=== PATIENT | female | born 1960 | race Caucasian/White ===

== ENCOUNTER 2022-02-12 14:35 | Inpatient (IN) | payer OTHER ==
[2022-02-12 15:28] LABS: ALT (SGPT) 22 U/L (8-55); AST (SGOT) 20 U/L (5-34); Albumin 3.4 g/dL (3.5-5.0); Alkaline Phosphatase 61 U/L (40-110); Anion Gap 20 mmol/L (10-20); BUN (Urea Nitrogen) 26 mg/dL (9.8-20.1); Bilirubin, Total 2.7 mg/dL (0.2-1.2); CK (CPK) 150 U/L (29-168); Calc. Creatinine Clearance 0 mL/min (70-130); Calcium 8.1 mg/dL (7.8-10.44); Carbon Dioxide 18 mmol/L (22-29); Chloride 96 mmol/L (98-107); Globulin 2.2 g/dL (2.4-3.5); Glucose 374 mg/dL (70-105); Lipase 13 U/L (8-78); Potassium 4.5 mmol/L (3.5-5.1); Protein, Total 5.6 g/dL (6.0-8.3); Sodium 129 mmol/L (136-145)
[2022-02-12 15:33] LABS: Actual Bicarbonate (HCO3v) 20 mEq/L (22-28); Base Excess -4.3 mEq/L (-2.0 to +3.0); Calcium, Ionized (venous) 1.03 mmol/L (1.16-1.32); Chloride (VBG) 97 mmol/L (98-106); Hemoglobin (Hb) 12.9 g/dL (11.7-16.0); Potassium (VBG) 4.77 mmol/L (3.70-5.30); Puncture Site Other Site; RapidComm Collect By CBL; Sodium 125.6 mmol/L (133-146); pH (venous) 7.39 (7.32-7.43)
[2022-02-12] MEDS ORDERED: Acetaminophen 500 MG TAB ONE (15:33)
[2022-02-12] MEDS ORDERED: Ondansetron PF 4 MG/2 ML Vial ONE ×2 (15:33→20:06)
[2022-02-12] MEDS ORDERED: Vancomycin HCl 500 MG VIAL ONE (15:56)
[2022-02-12 15:57] LABS: Hemoglobin 12.8 g/dL (12.0-15.5); Mean Corpuscular HGB CONC 33.9 g/dL (32.0-36.0); Mean Corpuscular Hemoglobin 27.8 pg (27.0-33.0); Mean Corpuscular Volume 82.2 fl (81.6-98.3); Mean Platelet Volume 9.9 fl (7.4-10.4); Platelet Count 192 10x3/uL (150-450); RBC Distribution Width 15.1 % (11.5-14.5); White Blood Cell (WBC) Count 14.6 10x3/uL (3.5-10.5)
[2022-02-12 16:20] LABS: Bilirubin Neg (Negative); Blood, Urine 250 (Negative); Clarity Cloudy (Clear); Glucose, Urine (Dipstick) 250 mg/dL (Negative); Ketone, Urine 5 mg/dL (Negative); Leukocyte 500 (Negative); Nitrite Negative (Negative); Protein, Urine (Dipstick) 100 mg/dl (Neg-Trace); Urobilinogen Normal mg/dL (Less than 2)
[2022-02-12 16:23] LABS: Band 27 % (5-11); Lymphocytes 4 % (21-51); Monocytes 3 % (0-10); Neutrophil 66 % (42-75)
[2022-02-12 16:24] LABS: Anisocytosis SLIGHT = 6-15 cells (100X) (0-5/hpf); Poikilocytosis SLIGHT = 6-15 cells (100X) (0-5/hpf)
[2022-02-12 16:25] LABS: Burr Cells SLIGHT = 2-5 cells (100X) (0-1/hpf); Crenated RBC SLIGHT = 1-5 cells (100X) (None Seen); Microcytosis SLIGHT = 6-15 cells (100X) (0-5/hpf)
[2022-02-12 16:26] LABS: Dohle Bodies MODERATE; Platelet Morphology Comment Appears Adequate; Toxic Granulation SLIGHT; Vacuoles SLIGHT
[2022-02-12 16:27] LABS: MDiff Complete? YES
[2022-02-12 16:56] LABS: Bacteria/HPF 4+ HPF (None Seen); RBC/HPF Greater than 50 HPF (0-3); Renal Epithelial 0-3 HPF (None Seen); Squamous Epithelial 0-3 HPF (0-3); WBC/HPF Greater Than 50 HPF (0-3)
[2022-02-12 17:53] LABS: Lactic Acid 1.6 mmol/L (0.5-2.2)
[2022-02-12] MEDS ORDERED: Cefepime 2 GM VIAL ONE (18:58)
[2022-02-12] MEDS ORDERED: Sodium Chloride 0.9% 1,000 ML IV SCH (19:30)
[2022-02-12] MEDS ORDERED: Dextrose 5 %-0.45 % NaCl 1,000 ML IV PRN (19:33)
[2022-02-12] MEDS ORDERED: D5 1/2 NS w/20 mEq KCL 1,000 ML IV PRN (19:33)
[2022-02-12] MEDS ORDERED: Sodium Chloride 0.9% 1,000 ML IV PRN (19:33)
[2022-02-12] MEDS ORDERED: NS 0.9% w/ 20 MEQ KCL 1,000 ML IV PRN (19:33)
[2022-02-12] MEDS ORDERED: Electrolyte Replacement Protocol 1 EACH IVPB SCH (19:33)
[2022-02-12] MEDS ORDERED: Ondansetron ODT 4 MG TAB PO PRN (19:36)
[2022-02-12] MEDS ORDERED: Iopamidol 0 ML ONE (19:44)
[2022-02-12] MEDS ORDERED: Fentanyl 100 MCG/2 ML VIAL ONE (19:48)
[2022-02-12] MEDS ORDERED: PROPOFOL 20 ML ONE (19:48)
[2022-02-12] MEDS ORDERED: Lidocaine 2% PF 5 ML VIAL ONE (20:06)
[2022-02-12] MEDS ORDERED: Dexamethasone 4 mg/ml Vial ONE (20:06)
[2022-02-12 20:10] LABS: Anion Gap 13 mmol/L (10-20); BUN (Urea Nitrogen) 29 mg/dL (9.8-20.1); Calc. Creatinine Clearance 0 mL/min (70-130); Calcium 8.3 mg/dL (7.8-10.44); Carbon Dioxide 20 mmol/L (22-29); Chloride 101 mmol/L (98-107); Glucose 245 mg/dL (70-105); Magnesium 1.6 mg/dL (1.6-2.6); Phosphorus 2.5 mg/dL (2.3-4.7); Potassium 3.7 mmol/L (3.5-5.1); Sodium 130 mmol/L (136-145)
[2022-02-12] MEDS ORDERED: Succinylcholine 200 MG/10 ml SYRINGE FS ONE (20:50)
[2022-02-12 22:26] VITALS: BMI 31.7
[2022-02-12] MEDS ORDERED: INSULIN REGULAR IN 0.9 % NACL 100 UNIT in Sodium Chloride 0.9% 100 ML IVPB SCH (23:00)
[2022-02-12] MEDS: Ondansetron PF 4 MG/2 ML Vial IVP PRN (23:06)
[2022-02-12] MEDS ORDERED: Dextrose 5% in Water 1,000 ML IV PRN (23:15)
[2022-02-12] MEDS ORDERED: Dextrose 50% Abboject 50 ML SYRINGE IVP PRN (23:15)
[2022-02-12] MEDS ORDERED: HumaLOG 300 UNITS/3 ML VIAL SC PRN (23:15)
[2022-02-12 23:53] LABS: Anion Gap 16 mmol/L (10-20); BUN (Urea Nitrogen) 33 mg/dL (9.8-20.1); Calc. Creatinine Clearance 30 mL/min (70-130); Calcium 8.2 mg/dL (7.8-10.44); Carbon Dioxide 16 mmol/L (22-29); Chloride 103 mmol/L (98-107); Glucose 303 mg/dL (70-105); Potassium 4.3 mmol/L (3.5-5.1); Sodium 131 mmol/L (136-145)
[2022-02-13] MEDS ORDERED: Vancomycin 1 GM in Premix Bag 1 BAG IVPB PRN (00:30)
[2022-02-13] MEDS ORDERED: NS 0.9% w/ 20 MEQ KCL 1,000 ML IV PRN (01:05)
[2022-02-13] MEDS ORDERED: Electrolyte Replacement Protocol 1 EACH IVPB SCH (01:05)
[2022-02-13] MEDS ORDERED: D5 1/2 NS w/20 mEq KCL 1,000 ML IV PRN (01:05)
[2022-02-13] MEDS ORDERED: Sodium Chloride 0.9% 1,000 ML IV PRN ×2 (01:05)
[2022-02-13] MEDS ORDERED: Dextrose 5 %-0.45 % NaCl 1,000 ML IV PRN (01:05)
[2022-02-13] MEDS: INSULIN REGULAR IN 0.9 % NACL 100 UNIT in Premix Bag 1 BAG IVPB SCH ×3 (01:33→15:28)
[2022-02-13] MEDS ORDERED: NS 0.9% w/ 20 MEQ KCL 1,000 ML ONE (01:35)
[2022-02-13 03:17] LABS: Mean Corpuscular HGB CONC 34.1 g/dL (32.0-36.0); Mean Corpuscular Hemoglobin 28.4 pg (27.0-33.0); Mean Corpuscular Volume 83.2 fl (81.6-98.3); Mean Platelet Volume 9.8 fl (7.4-10.4); Platelet Count 147 10x3/uL (150-450); RBC Distribution Width 15.2 % (11.5-14.5); Red Blood Cell (RBC) Count 3.88 10x6/uL (3.90-5.03); White Blood Cell (WBC) Count 12.6 10x3/uL (3.5-10.5)
[2022-02-13 03:50] LABS: Anion Gap 14 mmol/L (10-20); BUN (Urea Nitrogen) 37 mg/dL (9.8-20.1); Calc. Creatinine Clearance 29 mL/min (70-130); Calcium 8.2 mg/dL (7.8-10.44); Carbon Dioxide 15 mmol/L (22-29); Chloride 105 mmol/L (98-107); Glucose 303 mg/dL (70-105); Potassium 4.2 mmol/L (3.5-5.1); Sodium 130 mmol/L (136-145)
[2022-02-13] MEDS: Acetaminophen 325 MG TAB PO PRN ×2 (04:24→17:44)
[2022-02-13 05:38] LABS: SARS-CoV-2 NAA Rapid Test Not Detected (NotDetected)
[2022-02-13] MEDS ORDERED: Sodium Chloride 0.9% 1,000 ML IV SCH (06:30)
[2022-02-13 06:36] LABS: Magnesium 1.7 mg/dL (1.6-2.6); Phosphorus 2.4 mg/dL (2.3-4.7)
[2022-02-13] MEDS: Enoxaparin Sodium 30 MG/0.3 ML SYRINGE SC SCH (08:25)
[2022-02-13] MEDS: D5 1/2 NS w/20 mEq KCL 1,000 ML IV SCH ×2 (08:33→16:35)
[2022-02-13] MEDS ORDERED: Magnesium 2 GM/50 ML(in water) 2 GM in Premix Bag 1 BAG IVPB SCH (09:00)
[2022-02-13 09:26] LABS: Anion Gap 13 mmol/L (10-20); BUN (Urea Nitrogen) 38 mg/dL (9.8-20.1); Calc. Creatinine Clearance 29 mL/min (70-130); Calcium 7.9 mg/dL (7.8-10.44); Carbon Dioxide 17 mmol/L (22-29); Chloride 108 mmol/L (98-107); Glucose 176 mg/dL (70-105); Potassium 4.1 mmol/L (3.5-5.1); Sodium 134 mmol/L (136-145); Vancomycin, Random 13.1 ug/mL (See Comment)
[2022-02-13] MEDS: Ondansetron PF 4 MG/2 ML Vial IVP PRN (09:32)
[2022-02-13] MEDS ORDERED: VANCOMYCIN 1.25 GM/250 ML BAG 1.25 GM in Premix Bag 1 BAG IVPB SCH (11:00)
[2022-02-13] MEDS ORDERED: VANCOMYCIN 1.25 GM/250 ML BAG 1.25 GM in Premix Bag 1 BAG IVPB PRN (11:13)
[2022-02-13 14:41] LABS: Anion Gap 14 mmol/L (10-20); BUN (Urea Nitrogen) 41 mg/dL (9.8-20.1); Calc. Creatinine Clearance 26 mL/min (70-130); Calcium 8.3 mg/dL (7.8-10.44); Carbon Dioxide 16 mmol/L (22-29); Chloride 108 mmol/L (98-107); Glucose 147 mg/dL (70-105); Magnesium 2.8 mg/dL (1.6-2.6); Potassium 4.3 mmol/L (3.5-5.1); Sodium 134 mmol/L (136-145)
[2022-02-13 19:31] LABS: Anion Gap 15 mmol/L (10-20); BUN (Urea Nitrogen) 45 mg/dL (9.8-20.1); Calc. Creatinine Clearance 26 mL/min (70-130); Calcium 8.6 mg/dL (7.8-10.44); Carbon Dioxide 16 mmol/L (22-29); Chloride 105 mmol/L (98-107); Glucose 200 mg/dL (70-105); Potassium 4.5 mmol/L (3.5-5.1); Sodium 131 mmol/L (136-145)
[2022-02-13] MEDS ORDERED: Lactated Ringer's 1,000 ML IV SCH (20:00)
[2022-02-13] MEDS: Cefepime 1 GM in Sodium Chloride 0.9% 100 ML IVPB SCH (21:08)
[2022-02-13] MEDS: Dextrose 5%-Lactated Ringers 1,000 ML IV SCH (22:27)
[2022-02-14] MEDS: Dextrose 5%-Lactated Ringers 1,000 ML IV SCH (00:40)
[2022-02-14] MEDS: INSULIN REGULAR IN 0.9 % NACL 100 UNIT in Premix Bag 1 BAG IVPB SCH (00:40)
[2022-02-14] MEDS: Ondansetron PF 4 MG/2 ML Vial IVP PRN ×2 (02:55→08:18)
[2022-02-14 04:29] LABS: Mean Corpuscular HGB CONC 33.3 g/dL (32.0-36.0); Mean Corpuscular Hemoglobin 28.4 pg (27.0-33.0); Mean Corpuscular Volume 85.3 fl (81.6-98.3); Mean Platelet Volume 10.8 fl (7.4-10.4); Platelet Count 155 10x3/uL (150-450); RBC Distribution Width 15.4 % (11.5-14.5); Red Blood Cell (RBC) Count 3.87 10x6/uL (3.90-5.03); White Blood Cell (WBC) Count 15.8 10x3/uL (3.5-10.5)
[2022-02-14 04:47] LABS: Vancomycin, Random 24.4 ug/mL (See Comment)
[2022-02-14 04:50] LABS: Bilirubin, Direct 0.5 mg/dL (0.1-0.3)
[2022-02-14 04:52] LABS: Anion Gap 17 mmol/L (10-20); BUN (Urea Nitrogen) 47 mg/dL (9.8-20.1); Calc. Creatinine Clearance 26 mL/min (70-130); Calcium 8.9 mg/dL (7.8-10.44); Carbon Dioxide 14 mmol/L (22-29); Chloride 109 mmol/L (98-107); Glucose 180 mg/dL (70-105); Magnesium 2.5 mg/dL (1.6-2.6); Potassium 4.6 mmol/L (3.5-5.1); Sodium 135 mmol/L (136-145)
[2022-02-14] MEDS: Levothyroxine Sodium 50 MCG TAB PO SCH (05:09)
[2022-02-14] MEDS ORDERED: Sodium Bicarbonate 150 MEQ in Dextrose 5% in Water 1,000 ML IV SCH (08:00)
[2022-02-14] MEDS: Enoxaparin Sodium 30 MG/0.3 ML SYRINGE SC SCH (08:17)
[2022-02-14] MEDS: Sodium Bicarbonate 75 MEQ in Dextrose 5% in Water 500 ML IV SCH ×2 (08:17→13:16)
[2022-02-14] MEDS: Amlodipine 10 MG TAB PO SCH (08:18)
[2022-02-14] MEDS: Rosuvastatin 20 MG TAB PO SCH (08:18)
[2022-02-14] MEDS ORDERED: Dextrose 5% in Water 1,000 ML IV PRN (10:02)
[2022-02-14] MEDS ORDERED: Dextrose 50% Abboject 50 ML SYRINGE SLOW IVP PRN (10:02)
[2022-02-14] MEDS ORDERED: Lantus 1000 UNITS/10 ML VIAL SC SCH (10:15)
[2022-02-14] MEDS: Acetaminophen 500 MG TAB PO PRN ×2 (10:20→20:39)
[2022-02-14 13:14] LABS: Hemoglobin A1c 9.8 % (4.0-6.0)
[2022-02-14] MEDS: HumaLOG 300 UNITS/3 ML VIAL SC PRN ×2 (17:02→22:03)
[2022-02-14 19:18] LABS: Anion Gap 14 mmol/L (10-20); BUN (Urea Nitrogen) 47 mg/dL (9.8-20.1); Calc. Creatinine Clearance 28 mL/min (70-130); Calcium 8.8 mg/dL (7.8-10.44); Carbon Dioxide 19 mmol/L (22-29); Chloride 105 mmol/L (98-107); Glucose 253 mg/dL (70-105); Potassium 3.9 mmol/L (3.5-5.1); Sodium 134 mmol/L (136-145)
[2022-02-14] MEDS: Cefepime 1 GM in Sodium Chloride 0.9% 100 ML IVPB SCH (20:34)
[2022-02-15 04:29] LABS: Anion Gap 20 mmol/L (10-20); BUN (Urea Nitrogen) 46 mg/dL (9.8-20.1); Calc. Creatinine Clearance 29 mL/min (70-130); Calcium 8.1 mg/dL (7.8-10.44); Carbon Dioxide 15 mmol/L (22-29); Chloride 109 mmol/L (98-107); Glucose 252 mg/dL (70-105); Potassium 3.8 mmol/L (3.5-5.1); Sodium 140 mmol/L (136-145)
[2022-02-15 04:46] LABS: #Monocytes 0.8 10x3/uL (0.0-1.1); #Neutrophils 11.2 10x3/uL (1.5-8.4); %Basophils 0.2 % (0.0-2.0); %Eosinophils 0.2 % (0.0-6.0); %Lymphocytes 2.8 % (18.0-47.0); %Monocytes 6.6 % (0.0-10.0); %Neutrophils 89.1 % (40.0-75.0); Hemoglobin 10.2 g/dL (12.0-15.5); Mean Corpuscular HGB CONC 33.6 g/dL (32.0-36.0); Mean Corpuscular Hemoglobin 27.9 pg (27.0-33.0); Mean Corpuscular Volume 83.3 fl (81.6-98.3); Mean Platelet Volume 11.1 fl (7.4-10.4); Platelet Count 191 10x3/uL (150-450); RBC Distribution Width 15.3 % (11.5-14.5); Red Blood Cell (RBC) Count 3.65 10x6/uL (3.90-5.03); White Blood Cell (WBC) Count 12.5 10x3/uL (3.5-10.5)
[2022-02-15] MEDS: Levothyroxine Sodium 50 MCG TAB PO SCH (05:07)
[2022-02-15] MEDS ORDERED: Sodium Bicarbonate 150 MEQ in Dextrose 5% in Water 1,000 ML IV SCH (07:45)
[2022-02-15] MEDS: Sodium Bicarbonate 75 MEQ, Admixture Fee 1 EACH in Dextrose 5% in Water 500 ML IV SCH ×2 (09:09→13:51)
[2022-02-15] MEDS: Amlodipine 10 MG TAB PO SCH (09:10)
[2022-02-15] MEDS: Enoxaparin Sodium 30 MG/0.3 ML SYRINGE SC SCH (09:10)
[2022-02-15] MEDS: Rosuvastatin 20 MG TAB PO SCH (09:11)
[2022-02-15] MEDS: Lantus 1000 UNITS/10 ML VIAL SC SCH (09:13)
[2022-02-15] MEDS: HumaLOG 300 UNITS/3 ML VIAL SC PRN ×3 (12:09→21:14)
[2022-02-15] MEDS: Acetaminophen 500 MG TAB PO PRN (19:50)
[2022-02-15] MEDS: Cefepime 1 GM in Sodium Chloride 0.9% 100 ML IVPB SCH (19:59)
[2022-02-15] MEDS ORDERED: Lantus 1000 UNITS/10 ML VIAL SC SCH (21:00)
[2022-02-16 05:14] LABS: #Eosinphils 0.1 10x3/uL (0.0-0.5); #Monocytes 1.2 10x3/uL (0.0-1.1); %Basophils 0.1 % (0.0-2.0); %Eosinophils 0.6 % (0.0-6.0); %Lymphocytes 6.4 % (18.0-47.0); Hemoglobin 9.7 g/dL (12.0-15.5); Mean Corpuscular HGB CONC 34.6 g/dL (32.0-36.0); Mean Corpuscular Hemoglobin 28.2 pg (27.0-33.0); Mean Corpuscular Volume 81.4 fl (81.6-98.3); Mean Platelet Volume 10.7 fl (7.4-10.4); Platelet Count 212 10x3/uL (150-450); RBC Distribution Width 15.3 % (11.5-14.5); Red Blood Cell (RBC) Count 3.44 10x6/uL (3.90-5.03); White Blood Cell (WBC) Count 13.4 10x3/uL (3.5-10.5)
[2022-02-16] MEDS: Levothyroxine Sodium 50 MCG TAB PO SCH (05:35)
[2022-02-16] MEDS: HumaLOG 300 UNITS/3 ML VIAL SC PRN ×2 (05:48→15:22)
[2022-02-16 05:49] LABS: Anion Gap 15 mmol/L (10-20); BUN (Urea Nitrogen) 40 mg/dL (9.8-20.1); Calc. Creatinine Clearance 34 mL/min (70-130); Calcium 8.8 mg/dL (7.8-10.44); Carbon Dioxide 25 mmol/L (22-29); Chloride 104 mmol/L (98-107); Glucose 242 mg/dL (70-105); Potassium 3.8 mmol/L (3.5-5.1); Sodium 140 mmol/L (136-145)
[2022-02-16] MEDS ORDERED: Furosemide 40 MG/4 ML VIAL SLOW IVP SCH (09:00)
[2022-02-16] MEDS: Enoxaparin Sodium 30 MG/0.3 ML SYRINGE SC SCH (09:25)
[2022-02-16] MEDS: Amlodipine 10 MG TAB PO SCH (09:25)
[2022-02-16] MEDS: Rosuvastatin 20 MG TAB PO SCH (09:26)
[2022-02-16] MEDS: Lantus 1000 UNITS/10 ML VIAL SC SCH (09:26)
[2022-02-16 12:53] VITALS: BP 137/61; TEMP 98.7
== END 2022-02-16 16:47 | disposition home or self-care (01) | DRG 853 ==
LOC: CSHERS 14:35 → CSHICU 22:02 → CSHTELE 02-14 17:15
PROVIDERS: ADMIT Family Medicine; ATTEND Internal Medicine
PROC: 0T768DZ Dilation of Right Ureter with Intraluminal Device, Via Natural or Artificial Opening Endoscopic (ICD-10-PCS; principal; 2022-02-12)
PROC: 0TC68ZZ Extirpation of Matter from Right Ureter, Via Natural or Artificial Opening Endoscopic (ICD-10-PCS; 2022-02-12)
PROC: 3E03329 Introduction of Other Anti-infective into Peripheral Vein, Percutaneous Approach (ICD-10-PCS; 2022-02-13)
DX: A41.50 Gram-negative sepsis, unspecified (principal); E11.10 Type 2 diabetes mellitus with ketoacidosis without coma; N13.6 Pyonephrosis; N17.9 Acute kidney failure, unspecified; E87.1 Hypo-osmolality and hyponatremia; Z20.822 Contact with and (suspected) exposure to COVID-19; E11.22 Type 2 diabetes mellitus with diabetic chronic kidney disease; I12.9 Hypertensive chronic kidney disease with stage 1 through stage 4 chronic kidney disease, or unspecified chronic kidney disease; N18.30 Chronic kidney disease, stage 3 unspecified; M54.9 Dorsalgia, unspecified; E78.5 Hyperlipidemia, unspecified; E88.09 Other disorders of plasma-protein metabolism, not elsewhere classified; Z79.82 Long term (current) use of aspirin; Z79.84 Long term (current) use of oral hypoglycemic drugs; Z90.49 Acquired absence of other specified parts of digestive tract; Z90.710 Acquired absence of both cervix and uterus
CPT/HCPCS: 36415; 36416; 51600; 71045; 74176; 74430; 80048; 80053; 80202; 81003; 81015; 82010; 82247; 82550; 82805; 83036; 83605; 83630; 83690; 83735; 84100; 84484; 85025; 85027; 86140; 87040; 87045; 87046; 87077; 87086; 87149; 87186; 87324; 87427; 87449; 93005; 94640; 94760; 96365; 96366; 96367; 96375; C2617; J0692; J1100; J1650; J1815; J1940; J2001; J2405; J2704; J3010; J3370; J3475; J3480; J3490; J7050; J7070; J7120; J7620; Q9967; U0002